=== PATIENT | female | born 1975 | race African-American/Black ===

== ENCOUNTER → 2017-06-16 | Outpatient (CLI) | payer MEDICAID | LOC: HPND 12:15 | PROVIDERS: ATTEND Obstetrics & Gynecology | DX: O09.522 Supervision of elderly multigravida, second trimester (principal); O28.3 Abnormal ultrasonic finding on antenatal screening of mother; O28.5 Abnormal chromosomal and genetic finding on antenatal screening of mother; O35.1XX0 Maternal care for (suspected) chromosomal abnormality in fetus, not applicable or unspecified; O35.8XX0 Maternal care for other (suspected) fetal abnormality and damage, not applicable or unspecified; O09.212 Supervision of pregnancy with history of pre-term labor, second trimester | CPT/HCPCS: 76811; 76817; 76825; 76827; 93325 ==

== ENCOUNTER 2017-07-13 18:11 | Observation (INO) | payer MEDICAID ==
[2017-07-13] VITALS (7 sets, daily range): BP systolic 130–140; BP diastolic 53–76; PULSE 70–76; RESP 18; TEMP 98.1
[~2017-07-13] VITALS: Ht 172.7 cm; Wt 107.0 kg
--- NOTE | 2017-07-13 19:23 | PD ---
HPI Chief Complaint Vaginal bleeding Travel History International Travel<30 Days: No Contact w/Intl Traveler<30Days: No Known Affected Area: No History of Present Illness HPI 42-year-old , IUP at 23.6 care complicated by advanced maternal age, vaginal bleeding for the entire , obesity The patient presents reporting that while she has been bleeding vaginally for her entire , this has been dark blood mostly spotting, or blood with wiping. She reports that approximately 5 PM this evening the blood change to bright red bleeding and she saturated a panty liner. She reports that she is still having a small amount of bright red bleeding. She denies any recent intercourse. She denies any known placenta previa or other issues with her placenta. She reports good movement. She denies any leaking of fluid. She denies any painful contractions or cramping. There were no aggravating or alleviating factors to the bleeding. Weeks Gestation: 23 Para: 1102 : 3 History Past Medical History Narrative Medical Obesity Obstetric History Obstetric History 102 1 delivery at 27 weeks 1 with silent labor Past Surgical History Narrative Surgical Appendectomy Family History Narrative Family History Asthma Diabetes Hypertension CAD MRI CVA Social History Alcohol Use: No Tobacco Use: No Substance Abuse: No Allergies-Medications (Allergen,Severity, Reaction): Coded Allergies: No Known Allergies (Verified Allergy, Unknown, 07/13/17) Home Meds Reported Medications Ferrous Sulfate (Ferrous Sulfate) 325 Mg (65 Mg Iron) Tablet, 325 MG PO DAILY for Nutritional Supplement, #30 TAB 0 Refills 07/13/17 Vit,Calc76/Iron/Folic (Pnv 29-1 Tablet) 29 Mg Iron-1 Mg Tablet, 1 TAB PO DAILY 07/13/17 Review of Systems Except as stated in HPI: all other systems reviewed are Neg Physical Exam Narrative GENERAL: Well-nourished, well-developed patient. SKIN: Warm and dry. HEAD: Normocephalic and atraumatic. EYES: No scleral icterus. No injection or drainage. ENT: No nasal drainage noted. Mucous membranes pink. Airway patent. NECK: Supple, trachea midline. No JVD. CARDIOVASCULAR: Regular rate and rhythm without murmurs, gallops, or rubs. RESPIRATORY: Breath sounds equal bilaterally. No accessory muscle use. BREASTS: Deferred ABDOMEN/GI: Abdomen soft, non-tender, bowel sounds present, no rebound, no guarding Gravid GENITOURINARY: External Genitalia: intact and normal in appearance. Grossly normal BUS. No cervical or vaginal masses noted. Grossly normal rugae. Small amount of blood is visible in the vaginal vault, approximately 10 cc with bright red color mixed with some darkish brown discharge and mucus. There is no brisk or active bleeding at this time. Cervix does not appear to be bleeding. The cervix appears visually closed. SVE closed at that internal os with external os 1 cm/thick/high. Uterine Contractions: none FHT's: heart tones in the 120s to 130s and appropriate for gestational age. EXTREMITIES: No cyanosis or edema. BACK: Nontender without obvious deformity. NEUROLOGICAL: Awake and alert. Motor and sensory grossly within normal limits. Normal speech. Musculoskeletal: Grossly normal range of motion, gait, muscle strength Psychiatric: Grossly normal memory and affect Data Data Orders Orders Complete Blood Count With Diff (07/13/17 18:20) Urinalysis - C+S If Indicated (07/13/17 18:20) Comprehensive Metabolic Panel (07/13/17 18:20) Vital Signs (Adult) .ON ADMISSION (07/13/17 18:51) ^ Labor Status (07/13/17 18:51) ^ Non Stress Test (07/13/17 18:51) Cbc No Diff, Includes Plts (07/13/17 18:51) Protein Creat Ratio, Random Ur (07/13/17 19:13) ^ Saline Lock (07/13/17 19:15) MDM Plan Assessment/plan: 1. IUP at 23.6 2. Vaginal bleeding: The patient has had dark spotting through her entire however the bleeding became bright red tonight at 5 PM she saturated a panty liner. There is bright red blood visible in the vault although there does not appear to be active bleeding at this time. Hemoglobin 9.7. Discussed with Dr. Pérez, will admit for 23 hour observation due to bright red bleeding and obtain ultrasound in the a.m. Rh O+. 3. well-being: FHR reassuring and appropriate for gestational age, continue EFM with continuous monitoring. 4. No evidence of labor: Cervix is closed/thick at the internal os 5. Obesity 6. Borderline elevated blood pressures: Blood pressures improved with bed rest. Preeclampsia labs were sent and are normal. Protein creatinine ratio 0.11, uric acid 3.4, normal AST/ALT, normal platelet count. 7. UA pending 8. Hypokalemia: Potassium 3.3, will Rx 40 mEq tonight and repeat in the a.m. Ariane Lawrence MD Jul 13, 2017 19:23
[2017-07-13] MEDS ORDERED: FERR325T18 PO (19:41)
[2017-07-13] MEDS ORDERED: PREN1TAB45 PO (19:41)
[2017-07-13 20:18] LABS: AUTOMATED NEUTROPHIL # 6.8 TH/MM3 (1.8-7.7); BASOPHIL % 0.2 % (0.0-2.0); EOSINOPHIL # 0.2 TH/MM3 (0-0.4); EOSINOPHIL % 1.4 % (0.0-4.0); HEMATOCRIT 30.7 % (35.0-46.0); HEMOGLOBIN 9.7 GM/DL (11.6-15.3); LYMPH % 28.9 % (9.0-44.0); LYMPHOCYTE # 3.2 TH/MM3 (1.0-4.8); MEAN CELL VOLUME 74.5 FL (80.0-100.0); MEAN CORPUSCULAR HEMOGLOBIN 23.7 PG (27.0-34.0); MEAN CORPUSCULAR HGB CONC 31.7 % (32.0-36.0); MEAN PLATELET VOLUME 8.4 FL (7.0-11.0); MONO % 7.3 % (0.0-8.0); MONOCYTE # 0.8 TH/MM3 (0-0.9); NEUT % 62.2 % (16.0-70.0); PLATELET COUNT 257 TH/MM3 (150-450); RED BLOOD COUNT 4.12 MIL/MM3 (4.00-5.30); RED CELL DISTRIBUTION WIDTH 16.9 % (11.6-17.2)
[2017-07-13 20:39] LABS: ALBUMIN 2.9 GM/DL (3.4-5.0); ALT (GPT) 13 U/L (10-53); AST (GOT) 23 U/L (15-37); BICARBONATE 24.2 MEQ/L (21.0-32.0); BLOOD UREA NITROGEN 6 MG/DL (7-18); CALCIUM 8.8 MG/DL (8.5-10.1); CHLORIDE 107 MEQ/L (98-107); CREATININE 0.52 MG/DL (0.50-1.00); GLOMERULAR FILTRATION RATE 158 ML/MIN (>89); GLUCOSE,RANDOM 82 MG/DL (74-106); SODIUM (NA) 138 MEQ/L (136-145)
[2017-07-13 20:42] LABS: ALKALINE PHOSPHATASE 75 U/L (45-117); TOTAL BILIRUBIN ADULT 0.2 MG/DL (0.2-1.0); TOTAL PROTEIN 7.2 GM/DL (6.4-8.2)
[2017-07-13] MEDS ORDERED: ZOLPIDEM TARTRATE 5 MG TAB PO PRN (21:15)
[2017-07-13] MEDS ORDERED: ONDANSETRON HCL 4 MG/2 ML VIAL IV PUSH PRN (21:15)
[2017-07-13] MEDS ORDERED: ACETAMINOPHEN 325 MG TAB PO PRN (21:15)
[2017-07-13] MEDS ORDERED: ONDANSETRON ODT 4 MG TAB PO PRN (21:15)
[2017-07-13] MEDS ORDERED: ALUMINUM/MAGNESIUM/SIMETH 30 ML CUP PO PRN (21:15)
[2017-07-13] MEDS ORDERED: SODIUM CHLORIDE 0.9% FLUSH 10 ML FLUSH IV FLUSH PRN (21:15)
[2017-07-13] MEDS: POTASSIUM CHLORIDE 20 MEQ CONTROLLED RELEASE TAB PO SCH (21:33)
[2017-07-14] VITALS: RESP 18; TEMP 97.8
[2017-07-14 00:02] VITALS: BP 133/63; PULSE 77
[2017-07-14 02:12] VITALS: RESP 18
[2017-07-14 02:13] VITALS: BP 131/56; PULSE 66
[2017-07-14 07:12] LABS: BILIRUBIN, URINE NEG (NEG); BLOOD, URINE NEG (NEG); GLUCOSE,URINE NEG (NEG); KETONE, URINE NEG (NEG); MUCUS URINE FEW /lpf (OCC); NITRITE,URINE NEG (NEG); PH, URINE 6.5 (5.0-8.5); SQUAMOUS EPITHELIAL CELL URINE <1 /hpf (0-5); URINE COLOR YELLOW (YELLW/STRAW); URINE LEUKOCYTE ESTERASE SMALL (NEG)
[2017-07-14 08:09] VITALS: BP 141/67; PULSE 70; TEMP 97.9
--- NOTE | 2017-07-14 08:10 | PD.OB.ANTE ---
Subjective Diagnosis: (1) Vaginal bleeding during , antepartum Diagnosis: Principal (2) state, incidental Diagnosis: Secondary Interval History +FM, no ctx, on elie from office, will get celestone, h/o PTd Objective Vital Signs Vital Signs Date Time Temp Pulse Resp B/P (MAP) Pulse Ox O2 Delivery O2 Flow Rate FiO2 07/14/17 02:13 66 131/56 (81) 07/14/17 02:12 18 07/14/17 00:02 77 133/63 (86) 07/14/17 00:00 97.8 18 07/13/17 21:26 98.1 18 07/13/17 21:14 72 137/53 (81) 07/13/17 19:10 70 07/13/17 19:09 71 130/68 (88) 07/13/17 19:05 73 07/13/17 19:00 76 07/13/17 18:28 76 140/76 (97) Lab & Micro Results Test 07/13/17 19:25 07/14/17 06:20 White Blood Count 11.0 TH/MM3 Red Blood Count 4.12 MIL/MM3 Hemoglobin 9.7 GM/DL Hematocrit 30.7 % Mean Corpuscular Volume 74.5 FL Mean Corpuscular Hemoglobin 23.7 PG Mean Corpuscular Hemoglobin Concent 31.7 % Red Cell Distribution Width 16.9 % Platelet Count 257 TH/MM3 Mean Platelet Volume 8.4 FL Neutrophils (%) (Auto) 62.2 % Lymphocytes (%) (Auto) 28.9 % Monocytes (%) (Auto) 7.3 % Eosinophils (%) (Auto) 1.4 % Basophils (%) (Auto) 0.2 % Neutrophils # (Auto) 6.8 TH/MM3 Lymphocytes # (Auto) 3.2 TH/MM3 Monocytes # (Auto) 0.8 TH/MM3 Eosinophils # (Auto) 0.2 TH/MM3 Basophils # (Auto) 0.0 TH/MM3 CBC Comment DIFF FINAL Differential Comment Urine Random Creatinine 302 MG/DL Urine Random Total Protein 34 MG/DL Urine Protein/Creatinine Ratio 0.11 Blood Urea Nitrogen 6 MG/DL Creatinine 0.52 MG/DL Random Glucose 82 MG/DL Total Protein 7.2 GM/DL Albumin 2.9 GM/DL Calcium Level 8.8 MG/DL Alkaline Phosphatase 75 U/L Aspartate Amino Transf (AST/SGOT) 23 U/L Alanine Aminotransferase (ALT/SGPT) 13 U/L Total Bilirubin 0.2 MG/DL Sodium Level 138 MEQ/L Potassium Level 3.3 MEQ/L Chloride Level 107 MEQ/L Carbon Dioxide Level 24.2 MEQ/L Anion Gap 7 MEQ/L Estimat Glomerular Filtration Rate 158 ML/MIN Uric Acid 3.4 MG/DL Urine Color YELLOW Urine Turbidity CLEAR Urine pH 6.5 Urine Specific [place] 1.011 Urine Protein NEG mg/dL Urine Glucose (UA) NEG mg/dL Urine Ketones NEG mg/dL Urine Occult Blood NEG Urine Nitrite NEG Urine Bilirubin NEG Urine Urobilinogen LESS THAN 2.0 MG/DL Urine Leukocyte Esterase SMALL Urine RBC 1 /hpf Urine WBC 1 /hpf Urine Squamous Epithelial Cells <1 /hpf Urine Mucus FEW /lpf Microscopic Urinalysis Comment CULT NOT INDICATED Physical Exam GENERAL: Well-nourished, well-developed patient. CARDIOVASCULAR: Regular rate and rhythm without murmurs, gallops, or rubs. RESPIRATORY: Breath sounds equal bilaterally. No accessory muscle use. ABDOMEN/GI: Abdomen soft, non-tender. Fundus: [-] GENITOURINARY: External Genitalia: intact and normal in appearance Cervix: [-] deferred Dilatation: [-] Effacement: [-] Station: [-] Presentation: [-] Membranes: [-] Uterine Contractions: [-] FHT's: Category: [-] 1 Baseline: [-] Reactive: [-] Variability: [-] Decels: [-] EXTREMITIES: No cyanosis or edema, non-tender, without signs of DVT. Assessment and Plan Problem List: (1) state, incidental ICD Codes: Z33.1 - state, incidental (2) Vaginal bleeding during , antepartum ICD Codes: O46.90 - Antepartum hemorrhage, unspecified, unspecified trimester Assessment and Plan 42 y/o P1102, IUP at 24 wk with bleeding, vaginal US today, continue jairo delgadillo BR Baldwin, Cynthia K. MD Jul 14, 2017 08:10
[2017-07-14] MEDS ORDERED: BETAMETHASONE SOD PHOS/ACETATE SUSP 30 MG/5 ML VIAL IM ONE (08:15)
[2017-07-14] MEDS: POTASSIUM CHLORIDE 20 MEQ CONTROLLED RELEASE TAB PO SCH (08:22)
[2017-07-14 09:00] VITALS: RESP 18
[2017-07-14] MEDS ORDERED: MULTIVIT/MIN/PREN/FOL AC/IRON PRENATAL TAB PO SCH (09:00)
[2017-07-14] MEDS ORDERED: FERROUS SULFATE 325 MG (65 MG ELEMENTAL IRON) TAB PO SCH (09:00)
[2017-07-14] MEDS ORDERED: SODIUM CHLORIDE 0.9% FLUSH 10 ML FLUSH IV FLUSH SCH (09:00)
[2017-07-14] MEDS ORDERED: DOCUSATE SODIUM 100 MG CAP PO SCH (09:00)
[2017-07-14] MEDS ORDERED: BETA30P2 IM (12:58)
--- NOTE | 2017-07-14 12:58 | HHI.DCPOC ---
Discharge Care Plan Your Health Problems Are: Vaginal bleeding Report Symptoms to Your Doctor -Temperature above 100.5 degrees -Redness, of incision or excessive or foul smelling drainage -Unusual pain or calf pain -Increased vaginal bleeding -Painful or difficulty urinating -Feelings of extreme sadness or anxiety after 2 weeks Goals to Promote Your Health * To prevent worsening of your condition and complications * To maintain your health at the optimal level Directions to Meet Your Goals Take your medications as prescribed Follow your dietary instruction Follow activity as directed Ensure plenty of rest for recovery Drink fluids for hydration Keep your appointments as scheduled Take your immunizations and boosters as scheduled If your symptoms worsen call your PCP, if no PCP go to Urgent Care Center or Emergency Room Smoking is Dangerous to Your Health. Avoid second hand smoke Call the 24-hour crisis hotline for domestic abuse at Pennie Schuler MD Jul 14, 2017 12:58
[2017-07-15] MEDS ORDERED: PNEUMOCOCCAL POLYVALENT INJ 25 MCG/0.5 ML SYR IM ONE (09:00)
[2017-07-15] MEDS ORDERED: INFLUENZA VIRUS VACCINE (QUADRIVALENT) 0.5 ML SYR IM ONE (09:00)
== END 2017-07-14 13:56 | disposition home or self-care (01) ==
LOC: HOBED 18:11 → H2EA 21:10
PROVIDERS: ADMIT Obstetrics & Gynecology; ATTEND Obstetrics & Gynecology
DX: O46.92 Antepartum hemorrhage, unspecified, second trimester (principal); O09.522 Supervision of elderly multigravida, second trimester; O99.212 Obesity complicating pregnancy, second trimester; E66.9 Obesity, unspecified; Z3A.24 24 weeks gestation of pregnancy
CPT/HCPCS: 76816; 76817; 80053; 81001; 82570; 84156; 84550; 85025; 86900; 86901; 99285; G0378; J0702

== ENCOUNTER → 2017-07-15 | Outpatient (CLI) | payer MEDICAID ==
[~2017-07-15] MED LIST: BETA30P2 IM; BETAMETHASONE SOD PHOS/ACETATE SUSP 30 MG/5 ML VIAL IM ONE; FERR325T18 PO; PREN1TAB45 PO
== END ==
LOC: HOBG 08:27
PROVIDERS: ATTEND Obstetrics & Gynecology
DX: O60.02 Preterm labor without delivery, second trimester (principal)
CPT/HCPCS: 96372; J0702

== ENCOUNTER → 2017-08-11 | Outpatient (CLI) | payer MEDICAID ==
[~2017-08-11] MED LIST changes: -BETAMETHASONE SOD PHOS/ACETATE SUSP 30 MG/5 ML VIAL IM ONE
== END ==
LOC: HPND 11:06
PROVIDERS: ATTEND Obstetrics & Gynecology
DX: O09.522 Supervision of elderly multigravida, second trimester (principal); O35.1XX0 Maternal care for (suspected) chromosomal abnormality in fetus, not applicable or unspecified
CPT/HCPCS: 76816

== ENCOUNTER → 2017-09-01 | Outpatient (CLI) | payer MEDICAID | LOC: HPND 11:23 | PROVIDERS: ATTEND Obstetrics & Gynecology | DX: O09.523 Supervision of elderly multigravida, third trimester (principal); O35.1XX0 Maternal care for (suspected) chromosomal abnormality in fetus, not applicable or unspecified; O36.5930 Maternal care for other known or suspected poor fetal growth, third trimester, not applicable or unspecified | CPT/HCPCS: 76816; 76818; 76820 ==

== ENCOUNTER 2017-09-06 18:28 | Inpatient (IN) | payer MEDICAID ==
[2017-09-06] VITALS (16 sets, daily range): BP systolic 123–125; BP diastolic 55–79; PULSE 63–80; RESP 16–18
[~2017-09-06] VITALS: Ht 172.7 cm; Wt 111.0 kg
[~2017-09-06 18:28] MED LIST changes: -BETA30P2 IM
[2017-09-06] MEDS ORDERED: ZOLPIDEM TARTRATE 5 MG TAB PO PRN (19:15)
[2017-09-06] MEDS ORDERED: ONDANSETRON ODT 4 MG TAB PO PRN (19:15)
[2017-09-06] MEDS ORDERED: ACETAMINOPHEN 325 MG TAB PO PRN (19:15)
[2017-09-06] MEDS ORDERED: SODIUM CHLORIDE 0.9% FLUSH 10 ML FLUSH IV FLUSH PRN (19:15)
--- NOTE | 2017-09-06 19:15 | HHI.HP ---
HPI Chief Complaint Rule out preeclampsia Travel History International Travel<30 Days: No Contact w/Intl Traveler<30Days: No History of Present Illness HPI This is a AAF 42-year-old at 31w5d by L/7 (VIK[place] 11/03/17) here for r/o PREC, I was called by [facility] department today at 10am as she was there for testing for IUGR, received a 03/16 BPP but was found to have BPs of 140/80 and then 139/84, pt has no prior history of HTN during or outside of her . I called the patient at 10am as she had already left the [facility] department and notified her of my and the [facility] recommendations to present to L& D for observation and r/o preeclampsia TESSY, pt verified her understanding. During that phone call pt stated she had noticed some swelling in both her legs but denied any headache, vision changes, epigastric or RUQ pain. I did not evaluate the patient face to face upon her arrival to L&D, I was notified by nursing she arrived at 657pm. 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 History Past Medical History Narrative Medical 1. Fibroid uterus 2. Anemia Obstetric History Obstetric History 1. 06/2003: 27w, PTL, , male, 2lbs 3oz, [place], child w/o residual deficits. 2. 04/2007: 40w, , spontaneous labor, female, 8lbs 11oz, [place], not given 17 OHP. Past Surgical History Narrative Surgical None Family History Narrative Family History None contributory Social History Narrative Social History Denies T/E/D use, FOB is Named [place]. Allergies-Medications (Allergen,Severity, Reaction): Coded Allergies: No Known Allergies (Verified Allergy, Unknown, 07/13/17) Home Meds Reported Medications Ferrous Sulfate (Ferrous Sulfate) 325 Mg (65 Mg Iron) Tablet, 325 MG PO DAILY for Nutritional Supplement, #30 TAB 0 Refills 07/13/17 Vit,Calc76/Iron/Folic (Pnv 29-1 Tablet) 29 Mg Iron-1 Mg Tablet, 1 TAB PO DAILY 07/13/17 Narrative Medication Weekly 17 OHP ([place]) in the office Review of Systems General / Constitutional: No: Fever, Weight Gain, Weight Loss, Chills, Other Eyes: No: Diploplia, Blurred Vision, Visual changes, Pain, Photophobia HENT: No: Headaches, Vertigo, Lightheadedness Cardiovascular: No: Irregular Rhythm, Chest Pain or Discomfort, Palpitations, Tachycardia, Syncope, Varicosities, Edema, Cyanosis Respiratory: No: Cough, Short of Breath, Other Gastrointestinal: No: Nausea, Vomiting, Diarrhea Genitourinary: No: Decreased Urinary Output, Oliguria Musculoskeletal: No: Limited ROM, Weakness, Cramping, Edema, Pain Skin: No Rash, No Itching, No Dryness, No Lumps, No Change in Pigmentation, No Change in Nails, No Alopecia, No Lesions Neurologic: No: Weakness, Dizziness, Syncope, Focal Abnormalities, Coordination Problem, Headache, Slurred Speech, Seizures Psychiatric: No: Depression, Suicidal Ideations, Homicidal Ideation Endocrine: No: Heat Intolerance, Cold Intolerance, Polydipsia, Polyuria, Other Physical Exam Narrative BP 123/79, MAP 89, RR 18, P 70, 100% O2 sat on RA. PE not performed at time of presentation, will perform in AM or earlier if needed. per nursin-2cm, thick. FHT's: 140s, moderate variability, no accelerations, variable decelerations down 90s and 60s lasting 1-2 min, Caprini VTE Risk Assessment Caprini VTE Risk Assessment: Mod/High Risk (score >= 2) Caprini Risk Assessment Model Point Value = 1 Point Value = 2 Point Value = 3 Point Value = 5 Age 41-60 Minor surgery BMI > 25 kg/m2 Swollen legs Varicose veins or History of unexplained or recurrent spontaneous Oral contraceptives or hormone replacement Sepsis (< 1 month) Serious lung disease, including pneumonia (< 1 month) Abnormal pulmonary function Acute myocardial infarction Congestive heart failure (< 1 month) History of inflammatory bowel disease Medical patient at bed rest Age 61-74 Arthroscopic surgery Major open surgery (> 45 min) Laparoscopic surgery (> 45 min) Malignancy Confined to bed (> 72 hours) Immobilizing plaster cast Central venous access Age >= 75 History of VTE Family history of VTE Factor V Leiden Prothrombin [id number] Lupus anticoagulant Anticardiolipin antibodies Elevated serum homocysteine Heparin-induced thrombocytopenia Other congenital or acquired thrombophilia Stroke (< 1 month) Elective arthroplasty Hip, pelvis, or leg fracture Acute spinal cord injury (< 1 month) Prophylaxis Regimen Total Risk Factor Score Risk Level Prophylaxis Regimen 0-1 Low Early ambulation 2 Moderate Order ONE of the following: *Sequential Compression Device (SCD) *Heparin 5000 units SQ BID 3-4 Higher Order ONE of the following medications: *Heparin 5000 units SQ TID *Enoxaparin/Lovenox 40 mg SQ daily (WT < 150 kg, CrCl > 30 mL/min) *Enoxaparin/Lovenox 30 mg SQ daily (WT < 150 kg, CrCl > 10-29 mL/min) *Enoxaparin/Lovenox 30 mg SQ BID (WT < 150 kg, CrCl > 30 mL/min) AND/OR *Sequential Compression Device (SCD) 5 or more Highest Order ONE of the following medications: *Heparin 5000 units SQ TID (Preferred with Epidurals) *Enoxaparin/Lovenox 40 mg SQ daily (WT < 150 kg, CrCl > 30 mL/min) *Enoxaparin/Lovenox 30 mg SQ daily (WT < 150 kg, CrCl > 10-29 mL/min) *Enoxaparin/Lovenox 30 mg SQ BID (WT < 150 kg, CrCl > 30 mL/min) AND *Sequential Compression Device (SCD) Data Data Labs PNLs: O positive, antibody negative, Hb 9.9, VZV immune, Rubella non immune, VDRL non reactive, HepBsAg neg, HIV neg, urine culture negative, sickle cell screen neg, UDS neg, 1hr GTT 91, 28wk Hb 10.0. Assessment/Plan Assessment and Plan 42-year-old at 31w5d by [place] (VIKTORIA 11/03/17) here for r/o PREC 1. IUP: cat 2 tracing. Continuous EFM and TOCO - GBS unknown, transverse presentation, declined flu vaccine, recommend Tdap. - EFW (09/01/17) = 1751g <3%, anterior placenta - Pt s/p BMZ on 07/15 (antepartum admission for VB) - bolus IV LR then 125cc/hr and nursing to resuscitate for cat 2 tracing, NPO. Notified Dr. Stringer bonderite operator about concern and patient details. 2. Elevated BP / Rule out preeclampsia: Pt denied sn/sx, collect HELLP labs, P:C , begin 24hr urine protein, trend BPs, Will give rescue BMZ given tracing and will consider NICU consult if believe moving toward delivery. 3. IUGR: dx on 09/01, see above EFW, today 03/16 BPP, DAVION 10.8cm, elevated UA dop , did have AEDF on 09/01. Pt scheduled for 2x/wk ANT / UA dop. 4. AMA / SPDS: NIPS positive for Tri 21, declined amnio, has seen MFM throughout . 5. 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 6. History of delivery: 04', PTL at 27w. 07' w/ term , no 17 OHP or cerclage. - serial cervical lengths WNL during this preg, continue weekly 17 OHP in office 7. Rubella nonimmune: Vaccine 8. Fibroid uterus: Multiple, largest measuring 3.9 cm, left lateral intramural. 9. Microcytic Anemia: continue Fe BID. T&C x2 Brennan Pelaez MD Sep 06, 2017 19:15
[2017-09-06] MEDS: LACTATED RINGER'S 1000 ML INJ 1,000 ML IV SCH ×2 (20:15→23:44)
[2017-09-06] MEDS ORDERED: LACTATED RINGER'S 1000 ML INJ 1,000 ML IV ONE (20:15)
[2017-09-06] MEDS ORDERED: BETAMETHASONE SOD PHOS/ACETATE SUSP 30 MG/5 ML VIAL IM SCH (20:30)
[2017-09-06 20:44] LABS: AUTOMATED NEUTROPHIL # 6.7 TH/MM3 (1.8-7.7); BASOPHIL % 0.4 % (0.0-2.0); EOSINOPHIL # 0.1 TH/MM3 (0-0.4); EOSINOPHIL % 0.9 % (0.0-4.0); HEMATOCRIT 31.9 % (35.0-46.0); HEMOGLOBIN 10.5 GM/DL (11.6-15.3); LYMPHOCYTE # 2.9 TH/MM3 (1.0-4.8); MEAN CELL VOLUME 76.3 FL (80.0-100.0); MEAN CORPUSCULAR HGB CONC 32.8 % (32.0-36.0); MEAN PLATELET VOLUME 8.8 FL (7.0-11.0); MONOCYTE # 0.7 TH/MM3 (0-0.9); NEUT % 63.7 % (16.0-70.0); PLATELET COUNT 270 TH/MM3 (150-450); RED BLOOD COUNT 4.19 MIL/MM3 (4.00-5.30); RED CELL DISTRIBUTION WIDTH 16.6 % (11.6-17.2); WHITE BLOOD COUNT 10.5 TH/MM3 (4.0-11.0)
[2017-09-06 20:46] LABS: AMORPHOUS SEDIMENT, URINE RARE; BILIRUBIN, URINE NEG (NEG); BLOOD, URINE MOD (NEG); GLUCOSE,URINE NEG (NEG); KETONE, URINE TRACE mg/dL (NEG); MUCUS URINE FEW /lpf (OCC); NITRITE,URINE NEG (NEG); PH, URINE 6.5 (5.0-8.5); SQUAMOUS EPITHELIAL CELL URINE 13 /hpf (0-5); URINE COLOR YELLOW (YELLW/STRAW); URINE LEUKOCYTE ESTERASE LARGE (NEG)
[2017-09-06 20:57] LABS: ALBUMIN 2.4 GM/DL (3.4-5.0); AST (GOT) 19 U/L (15-37); BLOOD UREA NITROGEN 8 MG/DL (7-18); CHLORIDE 110 MEQ/L (98-107); CREATININE 0.67 MG/DL (0.50-1.00); GLOMERULAR FILTRATION RATE 118 ML/MIN (>89); GLUCOSE,RANDOM 95 MG/DL (74-106); SODIUM (NA) 141 MEQ/L (136-145)
[2017-09-06 20:58] LABS: ALT (GPT) 12 U/L (10-53)
[2017-09-06 21:00] LABS: ALKALINE PHOSPHATASE 95 U/L (45-117); TOTAL BILIRUBIN ADULT 0.2 MG/DL (0.2-1.0); TOTAL PROTEIN 6.7 GM/DL (6.4-8.2)
[2017-09-06] MEDS ORDERED: FERROUS SULFATE 325 MG (65 MG ELEMENTAL IRON) TAB PO SCH (21:00)
[2017-09-06] MEDS ORDERED: SODIUM CHLORIDE 0.9% FLUSH 10 ML FLUSH IV FLUSH SCH (21:00)
[2017-09-07] VITALS (10 sets, daily range): BP systolic 100–129; BP diastolic 55–76; PULSE 58–78; RESP 16–20; TEMP 97.6–98.1; O2SAT 97–100
[2017-09-07] MEDS ORDERED: CITRIC ACID-SODIUM CITRATE LIQ 30 ML UDC ONE (01:24)
[2017-09-07] MEDS ORDERED: ACETAMINOPHEN 1000 MG/100 ML 100 ML IV ONE ×2 (01:27→02:45)
[2017-09-07] MEDS ORDERED: MORPHINE SULFATE PF 5 MG/10 ML VIAL ONE (01:27)
[2017-09-07] MEDS ORDERED: LACTATED RINGER'S 1000 ML IV SCH (01:30)
[2017-09-07] MEDS ORDERED: LACTATED RINGER'S 1000 ML IV ONE (01:30)
[2017-09-07] MEDS ORDERED: CEFAZOLIN INJ 2,000 MG in SODIUM CHLORIDE 0.9% INJ 100 ML IV PRN (01:30)
[2017-09-07] MEDS ORDERED: CITRIC ACID-SODIUM CITRATE LIQ 30 ML UDC PO SCH (01:30)
[2017-09-07] MEDS ORDERED: EPIDURAL-DIPHENHYDRAMINE HCL 50 MG CAP PO PRN (01:45)
[2017-09-07] MEDS ORDERED: EPIDURAL-DO NOT ADMINISTER ANTICOAGULANTS PRN (01:45)
[2017-09-07] MEDS ORDERED: EPIDURAL-NALOXONE HCL 0.4 MG/ML AMP IV PUSH PRN (01:45)
[2017-09-07] MEDS ORDERED: EPIDURAL-DIPHENHYDRAMINE HCL 50 MG/ML VIAL IV PUSH PRN (01:45)
[2017-09-07] MEDS ORDERED: EPIDURAL-NO SYSTEMIC NARCOTICS PRN (01:45)
--- NOTE | 2017-09-07 02:38 | PD.OB.DELI ---
Procedure Note Section Procedure Pre Op Diagnosis: (1) IUGR, (2) Gestational hypertension (3) Non-reassuring electronic monitoring tracing Post Op Diagnosis: (1) S/P primary low transverse (2) IUGR, (3) Gestational hypertension (4) Non-reassuring electronic monitoring tracing Performed by Edna Stringer Procedure: Primary Low Transverse Sec Indication for delivery: Nonreassuring heart tracing Informed consent obtained: For anesthesia, For procedure Confirmed correct: Patient, Procedure, Site, Time-out taken Anesthesia: Spinal Medication prior to procedure: As documented in eMAR Monitoring during procedure: Blood pressure monitoring, classroom monitor, Pulse oximetry Urinary catheter: Inserted using sterile technique, To dependent drainage, ml urine output (100) Sterile preparation: Duraprep, In usual fashion, With drapes to expose affected area Position: Supine with wedge to right side Operative Features Skin Incision: Pfannenstiel Uterine Incision: Low transverse w/knife / scissors Membranes Ruptured: Artificially, Amount of liquid (moderate), Appearance of fluid (clear) Presentation: Vertex Delivery date: Sep 07, 2017 Delivery time: 01:59 Delivery of : Uneventful : Female, Single Five Minute : 8 Status of : Viable, Cord blood, Nursery present, Resuscitation required ( positive pressure ventilation) Placenta delivered: Intact, Sent to pathology Medications: Antibiotics (ancef 2g IV preop) Estimated blood loss: 300 mL Procedure tolerated: Well Maternal Condition: Stable Condition: Stable (in NICU) Procedure in detail see dictated op note Edna Stringer MD Sep 07, 2017 02:38
[2017-09-07] MEDS ORDERED: KETOROLAC TROMETHAMINE 60 MG/2 ML (IM) VIAL IM PRN (02:45)
[2017-09-07] MEDS ORDERED: ZOLPIDEM TARTRATE 5 MG TAB PO PRN (02:45)
[2017-09-07] MEDS ORDERED: ONDANSETRON HCL 4 MG/2 ML VIAL IV PUSH PRN (02:45)
[2017-09-07] MEDS ORDERED: OXYTOCIN 30 UNITS-500ML PREMIX 500 ML IV ONE (02:45)
[2017-09-07] MEDS ORDERED: SODIUM CHLORIDE 0.9% FLUSH 10 ML FLUSH IV FLUSH PRN (02:45)
[2017-09-07] MEDS ORDERED: oxyCODONE/ACETAMINOPHEN 5 MG/325 MG TAB PO PRN ×2 (02:45)
[2017-09-07] MEDS: SODIUM CHLORIDE 0.9% FLUSH 10 ML FLUSH IV FLUSH SCH ×2 (02:45→21:00)
[2017-09-07] MEDS ORDERED: ACETAMINOPHEN 325 MG TAB PO PRN (02:45)
[2017-09-07] MEDS ORDERED: DOCUSATE SODIUM 50 MG/SENNA 8.6 MG TAB PO PRN (02:45)
[2017-09-07] MEDS ORDERED: SIMETHICONE 80 MG CHEWABLE TAB PO PRN (02:45)
[2017-09-07] MEDS ORDERED: LACTATED RINGER'S 1000 ML INJ 1,000 ML IV SCH (07:32)
--- NOTE | 2017-09-07 08:17 | HHI.OB ---
Subjective Post Operative Day: 0 Remarks resting calmly with no complaints aware now her child has trisomy Objective Vitals/I&O Vital Signs Date Time Temp Pulse Resp B/P (MAP) Pulse Ox O2 Delivery O2 Flow Rate FiO2 09/07/17 04:30 58 121/70 (87) 09/07/17 04:30 97.6 16 100 09/07/17 03:48 114/72 (86) 09/07/17 03:48 63 18 09/07/17 03:35 62 18 100 09/07/17 03:35 114/65 (81) 09/07/17 03:19 59 18 106/61 (76) 100 09/07/17 03:04 68 18 106/61 (76) 100 09/07/17 02:44 98.1 69 18 107/57 (74) 100 09/06/17 23:46 16 09/06/17 23:45 69 09/06/17 23:41 125/55 (78) 09/06/17 23:41 70 09/06/17 23:40 68 09/06/17 23:35 64 09/06/17 23:30 80 09/06/17 23:25 63 09/06/17 23:20 70 09/06/17 23:15 67 09/06/17 23:10 67 09/06/17 23:00 70 09/06/17 19:55 67 09/06/17 19:50 66 09/06/17 19:45 73 09/06/17 19:40 18 09/06/17 19:38 70 123/79 (94) Result Diagram: 09/06/17201409/06/172014 Objective Remarks GENERAL: Well-nourished, well-developed patient. CARDIOVASCULAR: Regular rate and rhythm without murmurs, gallops, or rubs. RESPIRATORY: Breath sounds equal bilaterally. No accessory muscle use. ABDOMEN/GI: Abdomen soft, non-tender, bowel sounds present. Incision: Clean, dry and intact. Fundus: Firm, non-tender at umbilicus. GENITOURINARY: Light to moderate bleeding. EXTREMITIES: No cyanosis or edema, non-tender, without signs of DVT. Medications and IVs Current Medications Medications (Trade) Dose Ordered Sig/Otilio Route Start Time Stop Time Status Last Admin Lactated Ringer's 1,000 ml @ 100 mls/hr Q10H IV 09/07/17 07:32 09/08/17 03:31 Oxytocin 500 ml @ 100 mls/hr UNSCH X1 PRN IV 09/07/17 12:45 09/08/17 12:44 (NS Flush) 2 ml BID IV FLUSH 09/07/17 02:45 (NS Flush) 2 ml UNSCH PRN IV FLUSH 09/07/17 02:45 (Mylicon Chew) 80 mg QID PRN PO 09/07/17 02:45 (Tylenol) 650 mg Q6H PRN PO 09/07/17 02:45 (Motrin) 600 mg Q6H PRN PO 09/07/17 02:45 (Toradol Inj) 30 mg Q6H PRN IM 09/07/17 02:45 09/08/17 02:44 (Percocet 5-325 Mg) 1 tab Q4H PRN PO 09/07/17 02:45 (Percocet 5-325 Mg) 2 tab Q4H PRN PO 09/07/17 02:45 (Susana-Colace) 2 tab Q12H PRN PO 09/07/17 02:45 (Ambien) 5 mg HS PRN PO 09/07/17 02:45 (M-M-R Ii Inj) 0.5 ml ONCE ONCE SQ 09/08/17 16:00 09/08/17 16:01 (Boostrix Inj) 0.5 ml ONCE ONCE IM 09/08/17 16:00 09/08/17 16:01 (Zofran Inj) 4 mg Q6H PRN IV PUSH 09/07/17 02:45 Miscellaneous Information NO SYSTEMIC NARCOTICS TO BE GIVEN FO... UNSCH PRN .XX 09/07/17 01:45 09/08/17 01:44 (Narcan Inj) 0.4 mg UNSCH PRN IV PUSH 09/07/17 01:45 09/08/17 01:44 (Benadryl Inj) 25 mg Q6H PRN IV PUSH 09/07/17 01:45 09/08/17 01:44 (Benadryl) 50 mg Q6H PRN PO 09/07/17 01:45 09/08/17 01:44 Miscellaneous Information ALL NURSING DEPARTMENTS UNSCH PRN .XX 09/07/17 01:45 09/08/17 01:44 Assessment/Plan Assessment and Plan 42-year-old at 31w5d by [place] (VIKTORIA 11/03/17) here for r/o PREC 1. IUP: cat 2 tracing. Continuous EFM and TOCO - GBS unknown, transverse presentation, declined flu vaccine, recommend Tdap. - EFW (09/01/17) = 1751g <3%, anterior placenta - Pt s/p BMZ on 07/15 (antepartum admission for VB) - bolus IV LR then 125cc/hr and nursing to resuscitate for cat 2 tracing, NPO. Notified Dr. Stringer chemical production technician about concern and patient details. 2. Elevated BP / Rule out preeclampsia: Pt denied sn/sx, collect HELLP labs, P:C , begin 24hr urine protein, trend BPs, Will give rescue BMZ given tracing and will consider NICU consult if believe moving toward delivery. 3. IUGR: dx on 09/01, see above EFW, today 10/10 BPP, DAVION 10.8cm, elevated UA dop , did have AEDF on 09/01. Pt scheduled for 2x/wk ANT / UA dop. 4. AMA / SPDS: NIPS positive for Tri 21, declined amnio, has seen MFM throughout . 5. 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 6. History of delivery: 04', PTL at 27w. 07' w/ term , no 17 OHP or cerclage. - serial cervical lengths WNL during this preg, continue weekly 17 OHP in office 7. Rubella nonimmune: Vaccine 8. Fibroid uterus: Multiple, largest measuring 3.9 cm, left lateral intramural. 9. Microcytic Anemia: continue Fe BID. T&C x2 Immediate post op 09/07/17 08:00 doing well will need help with issues of trisomy, cardiac concerns and prematurity Geni Pérez MD Sep 07, 2017 08:17
--- NOTE | 2017-09-07 08:26 | MP ---
cc: Edna Stringer MD DATE OF OPERATION: 09/07/2017 PREOPERATIVE DIAGNOSES: 1. Cherry intrauterine at 31 weeks and 6 days. 2. Nonreassuring heart tones. 3. Isolated elevated blood pressure, admitted for evaluation of possible preeclampsia. 4. Intrauterine growth restriction. 5. 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 POSTOPERATIVE DIAGNOSES: 1. Cherry intrauterine at 31 weeks and 6 days. 2. Nonreassuring heart tones. 3. Isolated elevated blood pressure, admitted for evaluation of possible preeclampsia. 4. Intrauterine growth restriction. 5. 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 6. Postop day #0. INDICATIONS: Shaista Joyce is a 42-year-old 3, para 2-1-0-3, who is a patient of Dr. Brennan Pelaez. She was seen and evaluated throughout her with complications of abnormal testing with cell free DNA showing positive for trisomy 21. The patient was referred to Maternal Medicine. On echocardiogram, there was a slight membranous ventriculoseptal defect noted as well as some other soft markers for Down syndrome. The patient had serial monitoring and intrauterine growth restriction was noted at around 28-29 weeks. She did have intermittent abnormal S/D ratio on testing, but BPP had been 10/10. On September 06 when she was seen by M, she had an isolated elevated blood pressure. It was recommended that she be sent to labor and delivery for evaluation of possible preeclampsia. While the patient was placed on the monitor, although she was not tino, she had nonreassuring heart tones with absent variability and repetitive deep variable to late decelerations. Heart tones did not respond to supportive measures. As such, it was decided that delivery was indicated due to distress. PROCEDURE PERFORMED: Primary low transverse delivery. SURGEON Edna Stringer MD ANESTHESIA Spinal COMPLICATIONS: None. COUNTS: Sponge, lap, instrument and needle are correct x2 at the conclusion of the procedure. PROPHYLAXIS: Ancef 2 grams was given IV preoperatively and SCDs were on and functioning throughout the entire case. SPECIMENS: Placenta. INTRAOPERATIVE FINDINGS: Intraoperative findings include a premature smaller than dates female infant who was responsive upon delivery, although did not initially cry. The NICU staff was present for delivery and took infant to NICU for care due to prematurity. Apgars and weight are pending at this time. Amniotic fluid was clear. Uterus was enlarged with multiple small fibroids throughout. Normal bilateral adnexa. ESTIMATED BLOOD LOSS: 300 mL. URINE OUTPUT: 100 mL. IV FLUID REPLACEMENT: 900 mL. PROCEDURE IN DETAIL: After reviewing the informed consent, the patient was taken to the operating suite, where a timeout was performed to identify the patient, planned procedure, and any known allergies to drugs or drug products. The patient was placed sitting up on the exam table and spinal anesthesia was administered without difficulty and found to be adequate. The patient was then laid in dorsal supine position with a bump under her right side and abdomen and perineum were prepped and draped in normal sterile fashion. Singer catheter was placed using sterile technique. A Pfannenstiel type skin incision was made with a scalpel, carried down to the underlying layer of fascia with the Bovie. The fascia was incised in the midline. Incision was extended laterally with sharp dissection using Sanchez scissors. Kochers were used to elevate the superior edge of the fascial incision. Rectus muscles were dissected off both bluntly and sharply with Sanchez scissors. Christy was then and moved to the inferior aspect of the fascial incision and again blunt and sharp dissection was used to separate the rectus muscles off the fascia. The rectus muscles were then in the midline. Peritoneum was identified, elevated with hemostat and entered sharply with Metzenbaum scissors. Incision was extended bluntly with good visualization of intra-abdominal contents. Bladder blade was placed. A bladder flap was not made. Although ultrasound prior to the procedure had showed that the infant was unstable lie favoring transverse, the parts were able to be palpated externally on the uterus and head was able to be brought down into the lower uterine segment. A low transverse uterine incision was then made and through the amniotic sac the infant's head was grasped, elevated out through the incision and was delivered en caul and then sac was ruptured with clear fluid. Delayed cord clamping of 45 seconds was performed. The was then handed off to the awaiting NICU staff. A cord segment and a cord blood sample was taken. The uterus was then delivered with gentle cord traction and fundal massage. Uterus was exteriorized, cleared of all clots and debris with sterile moist lap sponges. The hysterotomy was repaired in a double-layer, first in a running locking layer, then in an imbricating layer with #1 chromic. Irrigation with suction was performed. Uterus was returned to the abdomen. Additional irrigation with suction was performed with excellent hemostasis noted at the repaired hysterotomy. Peritoneum was closed in a running layer with 2-0 chromic. Fascia was closed in running layer with #1 Vicryl. Subcutaneous tissue was irrigated and hemostasis was ensured with the Bovie. A series of interrupted sutures using 2-0 chromic was used to close the subcutaneous space. The skin was then cleaned and dried and closed in a subcuticular fashion with 3-0 Monocryl. Steri-Strips and a standard dressing were placed. The procedure concluded at this point. The patient tolerated the procedure well without complication. DISPOSITION: The patient's estimated length of stay is 2-3 postoperative days. Infant's disposition is NICU due to prematurity. Unclear how long will be in NICU at this time. MD GABBIE Castano/SARAH/ , 02:44 AM , 06:42 AM KAZ
[2017-09-07] MEDS ORDERED: PHENYLEPH/NS 1000 MCG/10 ML SYR IV ONE (12:00)
[2017-09-07] MEDS ORDERED: ceFAZolin INJ 1,000 MG VIAL IV ONE (12:00)
[2017-09-07] MEDS ORDERED: DEXAMETHASONE SOD PHOS 4 MG/ML VIAL IV ONE (12:00)
[2017-09-07] MEDS ORDERED: ONDANSETRON HCL 4 MG/2 ML VIAL IV ONE (12:00)
[2017-09-07] MEDS ORDERED: OXYTOCIN 10 UNIT/ML AMP IV ONE (12:00)
[2017-09-07] MEDS ORDERED: OXYTOCIN 30 UNITS-500ML PREMIX 500 ML IV PRN (12:45)
[2017-09-07] MEDS: IBUPROFEN 600 MG TAB PO PRN (22:42)
[2017-09-08 00:15] VITALS: BP 104/55; PULSE 68; RESP 18; TEMP 98.3
[2017-09-08 06:00] LABS: AUTOMATED NEUTROPHIL # 15.2 TH/MM3 (1.8-7.7); EOSINOPHIL % 0.1 % (0.0-4.0); HEMATOCRIT 32.1 % (35.0-46.0); HEMOGLOBIN 10.5 GM/DL (11.6-15.3); LYMPH % 14.5 % (9.0-44.0); LYMPHOCYTE # 2.8 TH/MM3 (1.0-4.8); MEAN CELL VOLUME 76.1 FL (80.0-100.0); MEAN CORPUSCULAR HEMOGLOBIN 24.8 PG (27.0-34.0); MEAN CORPUSCULAR HGB CONC 32.6 % (32.0-36.0); MEAN PLATELET VOLUME 8.9 FL (7.0-11.0); MONO % 7.4 % (0.0-8.0); MONOCYTE # 1.4 TH/MM3 (0-0.9); PLATELET COUNT 266 TH/MM3 (150-450); RED BLOOD COUNT 4.22 MIL/MM3 (4.00-5.30); RED CELL DISTRIBUTION WIDTH 15.9 % (11.6-17.2); WHITE BLOOD COUNT 19.5 TH/MM3 (4.0-11.0)
[2017-09-08 08:00] VITALS: BP 120/72; PULSE 61; RESP 18; TEMP 97.6; O2SAT 100
[2017-09-08] MEDS: SODIUM CHLORIDE 0.9% FLUSH 10 ML FLUSH IV FLUSH SCH ×2 (09:00→21:00)
--- NOTE | 2017-09-08 12:20 | HHI.OB ---
Subjective Post Operative Day: 2 Remarks POD#2, Stable,pumping Objective Vitals/I&O Vital Signs Date Time Temp Pulse Resp B/P (MAP) Pulse Ox O2 Delivery O2 Flow Rate FiO2 09/08/17 08:00 97.6 61 18 120/72 (88) 100 09/08/17 00:15 98.3 68 18 104/55 (71) 09/07/17 20:39 97.6 66 19 114/66 (82) 09/07/17 15:47 78 20 100/55 (70) 09/07/17 15:47 97.8 98 Result Diagram: 09/08/17 0523 09/06/172014 Objective Remarks GENERAL: Well-nourished, well-developed patient. CARDIOVASCULAR: Regular rate and rhythm without murmurs, gallops, or rubs. RESPIRATORY: Breath sounds equal bilaterally. No accessory muscle use. ABDOMEN/GI: Abdomen soft, non-tender, bowel sounds present. Incision: Clean, dry and intact. Fundus: Firm, non-tender at umbilicus. GENITOURINARY: Light to moderate bleeding. EXTREMITIES: No cyanosis or edema, non-tender, without signs of DVT. Medications and IVs Current Medications Medications (Trade) Dose Ordered Sig/Otilio Route Start Time Stop Time Status Last Admin Oxytocin 500 ml @ 100 mls/hr UNSCH X1 PRN IV 09/07/17 12:45 09/08/17 12:44 (NS Flush) 2 ml BID IV FLUSH 09/07/17 02:45 (NS Flush) 2 ml UNSCH PRN IV FLUSH 09/07/17 02:45 (Mylicon Chew) 80 mg QID PRN PO 09/07/17 02:45 (Tylenol) 650 mg Q6H PRN PO 09/07/17 02:45 (Motrin) 600 mg Q6H PRN PO 09/07/17 02:45 09/07/17 22:42 (Percocet 5-325 Mg) 1 tab Q4H PRN PO 09/07/17 02:45 (Percocet 5-325 Mg) 2 tab Q4H PRN PO 09/07/17 02:45 (Susana-Colace) 2 tab Q12H PRN PO 09/07/17 02:45 (Ambien) 5 mg HS PRN PO 09/07/17 02:45 (M-M-R Ii Inj) 0.5 ml ONCE ONCE SQ 09/08/17 16:00 09/08/17 16:01 (Boostrix Inj) 0.5 ml ONCE ONCE IM 09/08/17 16:00 09/08/17 16:01 (Zofran Inj) 4 mg Q6H PRN IV PUSH 09/07/17 02:45 Assessment/Plan Assessment and Plan 42-year-old at 31w5d by L/7 (VIKTORIA 11/03/17) here for r/o PREC 1. IUP: cat 2 tracing. Continuous EFM and TOCO - GBS unknown, transverse presentation, declined flu vaccine, recommend Tdap. - EFW (09/01/17) = 1751g <3%, anterior placenta - Pt s/p BMZ on 07/15 (antepartum admission for VB) - bolus IV LR then 125cc/hr and nursing to resuscitate for cat 2 tracing, NPO. Notified Dr. Stringer rehabilitation program coordinator about concern and patient details. 2. Elevated BP / Rule out preeclampsia: Pt denied sn/sx, collect HELLP labs, P:C , begin 24hr urine protein, trend BPs, Will give rescue BMZ given tracing and will consider NICU consult if believe moving toward delivery. 3. IUGR: dx on 09/01, see above EFW, today 10/10 BPP, DAVION 10.8cm, elevated UA dop , did have AEDF on 09/01. Pt scheduled for 2x/wk ANT / UA dop. 4. AMA / SPDS: NIPS positive for Tri 21, declined amnio, has seen MFM throughout . 5. 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 6. History of delivery: 04', PTL at 27w. 07' w/ term , no 17 OHP or cerclage. - serial cervical lengths WNL during this preg, continue weekly 17 OHP in office 7. Rubella nonimmune: Vaccine 8. Fibroid uterus: Multiple, largest measuring 3.9 cm, left lateral intramural. 9. Microcytic Anemia: continue Fe BID. T&C x2 Immediate post op 09/07/17 08:00 doing well will need help with issues of trisomy, cardiac concerns and prematurity 09/08/17 POD#2 ; Stable, pumping with no c/o. remains in NICU Discharge Planning Routine ,plan for tomorrow, POD#3 Redd oJse MD Sep 08, 2017 12:20
[2017-09-08] MEDS: IBUPROFEN 600 MG TAB PO PRN ×2 (14:09→22:53)
[2017-09-08] MEDS ORDERED: MEASLES, MUMPS, RUBELLA VACCINE 0.5 ML VIAL SQ ONE (16:00)
[2017-09-08] MEDS ORDERED: DIPHTH/TETANUS/ACEL PERTUSSIS (BOOSTER) 0.5 ML VIAL/PFS IM ONE (16:00)
[2017-09-08] MEDS ORDERED: IBUP-232 PO (16:51)
--- NOTE | 2017-09-08 16:51 | HHI.DCPOC ---
Discharge Care Plan Diagnosis: (1) 31 weeks gestation of (2) S/P primary low transverse (3) IUGR, (4) Non-reassuring electronic monitoring tracing (5) state, incidental Your Health Problems Are: delivery Report Symptoms to Your Doctor -Temperature above 100.5 degrees -Redness, of incision or excessive or foul smelling drainage -Unusual pain or calf pain -Increased vaginal bleeding -Painful or difficulty urinating -Feelings of extreme sadness or anxiety after 2 weeks Goals to Promote Your Health * To prevent worsening of your condition and complications * To maintain your health at the optimal level Directions to Meet Your Goals Take your medications as prescribed Follow your dietary instruction Follow activity as directed Ensure plenty of rest for recovery Drink fluids for hydration Keep your appointments as scheduled Take your immunizations and boosters as scheduled If your symptoms worsen call your PCP, if no PCP go to Urgent Care Center or Emergency Room Smoking is Dangerous to Your Health. Avoid second hand smoke Call the 24-hour crisis hotline for domestic abuse at Brennan Pelaez MD Sep 08, 2017 16:51
[2017-09-08 21:06] VITALS: BP 144/82; PULSE 72; RESP 18; TEMP 98.1
[2017-09-09 00:12] VITALS: BP_SYST 113; BP_SYST 117; BP_DIAS 67; BP_DIAS 71; PULSE 64; PULSE 66; RESP 18; RESP 19; TEMP 98.1
[2017-09-09 07:45] VITALS: BP 138/78; PULSE 74; RESP 20; TEMP 98
--- NOTE | 2017-09-09 09:58 | HHI.OB ---
Subjective Post Operative Day: 2 Remarks patient doing well, pain controlled, VB < menses, states new born doing well. Objective Vitals/I&O Vital Signs Date Time Temp Pulse Resp B/P (MAP) Pulse Ox O2 Delivery O2 Flow Rate FiO2 09/09/17 00:12 98.1 64 18 117/67 (84) 09/08/17 21:06 98.1 72 18 144/82 (102) Result Diagram: 09/08/1723 09/06/172014 Objective Remarks Abd: soft non tender Medications and IVs Current Medications Medications (Trade) Dose Ordered Sig/Otilio Route Start Time Stop Time Status Last Admin (NS Flush) 2 ml BID IV FLUSH 09/07/17 02:45 (NS Flush) 2 ml UNSCH PRN IV FLUSH 09/07/17 02:45 (Mylicon Chew) 80 mg QID PRN PO 09/07/17 02:45 (Tylenol) 650 mg Q6H PRN PO 09/07/17 02:45 (Motrin) 600 mg Q6H PRN PO 09/07/17 02:45 09/08/17 22:53 (Percocet 5-325 Mg) 1 tab Q4H PRN PO 09/07/17 02:45 (Percocet 5-325 Mg) 2 tab Q4H PRN PO 09/07/17 02:45 (Susana-Colace) 2 tab Q12H PRN PO 09/07/17 02:45 (Ambien) 5 mg HS PRN PO 09/07/17 02:45 (Zofran Inj) 4 mg Q6H PRN IV PUSH 09/07/17 02:45 Assessment/Plan Assessment and Plan 42-year-old s/p PLTCS at 31w6d for NRFHTs. 1. POD #2: meeting milestones, ready for d/c home, aware of precautions, expectations, and restrictions. 2. New born w/ likely tri 21, in NICU, doing well. Brennan Pelaez MD Sep 09, 2017 09:58
[2017-09-09] MEDS ORDERED: PERC5TAB12 PO (09:59)
[2017-09-09] MEDS ORDERED: IBUP-232 PO (10:00)
[2017-09-09] MEDS: SODIUM CHLORIDE 0.9% FLUSH 10 ML FLUSH IV FLUSH SCH (11:36)
== END 2017-09-09 12:14 | disposition home or self-care (01) | DRG 765 ==
LOC: H2EA 18:28 → OBSVTOIN 09-07 01:13 → H1EA 09-07 03:55
PROVIDERS: ADMIT Obstetrics & Gynecology; ATTEND Obstetrics & Gynecology
PROC: 10D00Z1 Extraction of Products of Conception, Low, Open Approach (ICD-10-PCS; principal; 2017-09-07)
DX: O13.4 Gestational [pregnancy-induced] hypertension without significant proteinuria, complicating childbirth (principal); O36.5930 Maternal care for other known or suspected poor fetal growth, third trimester, not applicable or unspecified; O99.02 Anemia complicating childbirth; O34.13 Maternal care for benign tumor of corpus uteri, third trimester; D25.9 Leiomyoma of uterus, unspecified; O35.1XX0 Maternal care for (suspected) chromosomal abnormality in fetus, not applicable or unspecified; D50.9 Iron deficiency anemia, unspecified; O76 Abnormality in fetal heart rate and rhythm complicating labor and delivery; Z3A.31 31 weeks gestation of pregnancy; Z37.0 Single live birth
CPT/HCPCS: 80053; 80307; 81001; 82570; 82805; 84156; 84157; 85025; 86850; 86900; 86901; 86920; 87086; 87150; 88307; 90707; 90715; G0481; J0131; J0690; J0702; J1100; J2274; J2370; J2405; J2590; J7120